=== PATIENT | male | born 1940 | race Caucasian/White ===

== ENCOUNTER → 2018-02-20 | Outpatient (CLI) | payer OTHER, BC ==
[~2018-02-20] MED LIST: ACETAMINOPHEN325 M1 PO; CAL MAG ZINC +1 EACH PO; COLACE100 MG PO; DELTA D3400 UNIT PO; ELEMENTAL ZINC30 MG PO; KEPPRA 500 MG500 M1 PO; KEPPRA250 MG; LAMICTAL 25 MG25 M1 PO; LAMOTRIGINE200 MG PO; LEVAQUIN 250 M250 MG PO; LIDOCAINE HCL 210 M1 TOP; MAG DELAY64 MG PO; MIRALAX255 GM PO; MUPIROCIN15 GM TP; TAMSULOSIN HCL0.4 M1 PO; TAMSULOSIN HCL0.4 MG PO; TUMS PO; TYLENOL325 MG PO; UNICOMPLEX M TA1 TA1 PO; VITAMIN D-40400 UNIT PO; ZOFRAN ODT4 MG PO
== END ==
LOC: CAT 12:18
DX: R41.82 Altered mental status, unspecified (principal)